=== PATIENT | male | born 1985 | race Two or more races ===

== ENCOUNTER 2021-06-23 11:45 | Emergency (ER) | payer MEDICAID, OTHER, SELFPAY ==
[2021-06-23 11:48] VITALS: BP 132/70; PULSE 80; RESP 18; TEMP 36.4; O2SAT 99; BMI 27.1
--- NOTE | 2021-06-23 12:42 | ED_ITS ---
HPI - Ear Problem General Chief complaint: Ear Problems Stated complaint: EAR PAIN Time Seen by Provider: 06/23/21 12:32 Source: patient and family Mode of arrival: ambulatory Limitations: no limitations History of Present Illness MD Complaint: ear pain Location: left ear Duration: constant Severity: moderate Relieving factors: nothing Exacerbating factors: palpation Context: recent plane flight Discharge from ear: no Associated symptoms ear: decreased hearing and external ear tenderness Treatment prior to arrival: eardrops (Was seen at [facility] about 12 days ago and had Cipro drops and no symptomatic relief) Related Data Previous Rx's Medication Instructions Recorded acetaminophen 300 mg-codeine 30 mg 1 tab PO Q8H PRN #14 tab 06/23/21 tablet amoxicillin 875 mg-potassium 1 tab PO BID 10 Days #20 tab 06/23/21 clavulanate 125 mg tablet (Augmentin) ofloxacin 0.3 % ear drops 10 drp OTIC (EARS) Q12H 14 Days ml 06/23/21 Allergies Allergy/AdvReac Type Severity Reaction Status Date / Time No Known Allergies Allergy Verified 06/23/21 11:47 Review of Systems Review of Systems: Constitutional : No Weight loss, No Fever, No Chills, No Night Sweats, No Fatigue, No Malaise ENT/Mouth : Positive left ear pain, No Hearing loss, No Nasal Congestion, No Sinus Pain, No Hoarseness, No sore throat, No Rhinorrhea, No Swallowing Difficulty Eyes: No Eye Pain, No Swelling, No Redness, No Foreign Body, No Discharge, No Vision Changes Cardiovascular : No Chest Pain, No SOB, No Dyspnea on Exertion, No Orthopnea, No Edema, No Palpitations Respiratory : No Cough, No Sputum, No Wheezing, No Smoke Exposure, No Dyspnea Gastrointestinal : No Nausea, No Vomiting, No Diarrhea, No Constipation, No abdominal Pain, No Hematochezia, No Melena Genitourinary : no irregular bleeding, No Dysuria, No Urinary Frequency, No Hematuria, No Urinary Incontinence, No Urgency, No Flank Pain, No Urinary Flow Changes, No Hesitancy Musculoskeletal : No joint pain, No Myalgias, No Joint Swelling Skin : No Skin Lesions, No rash Neuro : No Weakness, No Numbness, No Paresthesias, No Loss of Consciousness, No Dizziness, No Headache Psych : No Anxiety/Panic, No Depression, No SI/HI/AH/VH, No Social Issues, Heme/Lymph: No Bruising, No Bleeding,No Lymphadenopathy Endocrine : No Polyuria, No Polydipsia, No Temperature Intolerance Yes all other systems are reviewed and are negative [facility] Past Medical History Attestation statement: The following information was validated with the patient. Social History Social History Advance Directives: No Physical Exam Vital Signs: Vital Signs: Last Vital Signs Temp 97.5 F 06/23/21 11:48 Pulse 80 06/23/21 11:48 Resp 18 06/23/21 11:48 BP 132/70 06/23/21 11:48 Pulse Ox 99 06/23/21 11:48 Body Mass Index 27.1 vital signs have been reviewed as normal and appeared to be correct. Blood pressure normal. Heart rate normal. Respiration rate normal. Temperature normal. Oxygen saturation normal. Appearance: Alert. Oriented X3. No acute distress. Head: Normal external exam. Normocephalic. Atraumatic. No Salvador signs noted. No raccoon eyes noted Eyes: PERRLA. EOMI. Conjunctiva and sclera normal. Eyelids normal. ENT: Bilateral tympanic membranes erythematous with loss of normal landmarks and bulging and decreased light reflex consistent with otitis media. External e ar canals bilaterally erythematous and edematous consistent with otitis externa. Tympanic membranes are intact there are not perforated. Patient with tenderness palpation to bilateral tragus/Pinna. Pharynx normal. Uvula midline. Moist mucous membranes. No trismus noted. No drooling noted. No muffled voice noted. Neck: Normal inspection. Neck supple. FROM. No adenopathy. Thyroid Normal. No me ningeal signs. No neck mass noted. CVS: Normal heart rate and rhythm. Heart sound normal. Pulses normal throughout. No murmurs/rales/gallops. Respiratory: No respiratory distress. Painless inspiration. Back: Full range of motion noted. No rashes/lesion/induration/fluctuance or signs of infection noted. Skin: Skin warm and dry. Normal skin color. Normal skin turgor. No rashes/lesions/lacerations noted. Extremities: Extremities exhibit normal range of motion. Extremities nontender. Neuro: Oriented X 3. No motor deficit. No sensory deficit. Reflexes normal. Normal steady gait. No focal neuro deficits noted. Vascular: + radial pulses/+ 2 distal pedal pulses/+2 dorsalis pedis b/l. Normal cap refill. No cyanosis noted to upper extremity nails and lower extremity toes nails. Course Course Course Narrative: 36-year-old male presenting to the ED with complaints of left ear pain for the past 2 weeks worse today and is now starting in the right ear. Was seen at [facility] 12 days ago and diagnosed with external ear infection took Cipro drops for approximately 1 week and no symptomatic relief. He recently traveled on a plane. Denies any other symptoms. On exam patient noted to have bilateral otitis media/external ear canal infection tympanic membranes are intact. Therefore will DC home with antibiotics and symptomatic treatment along with instructions return if any new or worsening symptoms to follow up with primary care provider. Patient understands agrees with this plan. MDM - Ear Medical Records Attestation: I reviewed the patient's medical records. Discharge Plan Discharge Clinical Impression: Otitis externa, Otitis media Patient Disposition: Home, Self-Care Instructions: Otitis Externa (ED), Ear Infection (ED) Prescriptions: New ofloxacin 0.3 % drops 10 drp otic (ears) Q12H 14 Days RF: 0 amoxicillin-pot clavulanate [Augmentin] 875-125 mg tablet 1 tab PO BID 10 Days Qty: 20 RF: 0 acetaminophen-codeine 300-30 mg tablet 1 tab PO Q8H PRN (Reason: pain) Qty: 14 RF: 0 Referrals: Physician,None [Primary Care Provider] - 2 days (your pcp) Print Language: Nepali
== END 2021-06-23 12:57 | disposition home or self-care (01) ==
PROVIDERS: Emergency Provider Emergency Medicine Emergency Medical Services
DX: H60.90 Unspecified otitis externa, unspecified ear (principal); H66.90 Otitis media, unspecified, unspecified ear
CPT/HCPCS: 99283

== ENCOUNTER 2021-07-08 14:04 | Emergency (ER) | payer MEDICAID, OTHER, SELFPAY ==
[2021-07-08 14:25] VITALS: BP 137/100; PULSE 89; RESP 15; TEMP 36.7; O2SAT 99; BMI 25.1
--- NOTE | 2021-07-08 14:41 | ED_ITS ---
HPI - Ear Problem General Chief complaint: Ear Problems Stated complaint: RECHECK EAR INFECTION Time Seen by Provider: 07/08/21 14:41 Source: patient Mode of arrival: ambulatory Limitations: no limitations History of Present Illness HPI Narrative: 36-year-old male with recurrence ear infections presents to the emergency department with bilateral ear pain x1 month. He states that he has been put on multiple antibiotics including Cipro drops, ofloxacin drops, and oral Augmentin for his ear infection, and has not resolved. He reports decreased hearing in bilateral ears, worse in the left. He also reports purul ence discharge to bilateral ears, that has been improving over the past month, but it is still present. He mentions that at times he has tinnitus in both ears. He states that a little over a month ago, he had a long flight he was in, heard his ears pop at the time, did not think much of it, in weeks later he was diagnosed with an ear infection and otitis externa. Patient feels as though symptoms have not improved much with antibiotics. He states he has been using Q-tips frequently to bilateral ears. has been told to see an ENT, however he has not seen one due to issues with insurance. [place] He denies headache, fevers, chills, nausea, vomiting, rhinorrhea, sore throat, trauma to the area. To note, patient is not a diabetic. MD Complaint: ear pain and ear discharge Location: bilateral Duration: constant Severity: severe Relieving factors: nothing Exacerbating factors: nothing Context: recent plane flight Discharge from ear: yes - purulent Associated symptoms ear: tinnitus Treatment prior to arrival: other Related Data Previous Rx's Medication Instructions Recorded acetaminophen 300 mg-codeine 30 mg 1 tab PO Q8H PRN #14 tab 06/23/21 tablet amoxicillin 875 mg-potassium 1 tab PO BID 10 Days #20 tab 06/23/21 clavulanate 125 mg tablet (Augmentin) ofloxacin 0.3 % ear drops 10 drp OTIC (EARS) Q12H 14 Days ml 06/23/21 ciprofloxacin HCl 500 mg tablet 500 mg PO BID 10 Days #20 tab 07/08/21 Allergies Allergy/AdvReac Type Severity Reaction Status Date / Time No Known Allergies Allergy Verified 06/23/21 11:47 Review of Systems Review of Systems: Constitutional : No Weight loss, No Fever, No Chills, No Night Sweats, No Fatigue, No Malaise ENT/Mouth : + Hearing loss, + Ear Pain, + tinnitus, No Nasal Congestion, No Sinus Pain, No Hoarseness, No sore throat, No Rhinorrhea, No Swallowing Difficulty Eyes: No Eye Pain, No Swelling, No Redness, No Foreign Body, No Discharge, No Vision Changes Cardiovascular : No Chest Pain, No SOB, No Dyspnea on Exertion, No Orthopnea, No Edema, No Palpitations Respiratory : No Cough, No Sputum, No Wheezing, No Smoke Exposure, No Dyspnea Gastrointestinal : No Nausea, No Vomiting, No Diarrhea, No Constipation, No abdominal Pain, No Hematochezia, No Melena Musculoskeletal : No joint pain, No Myalgias, No Joint Swelling Skin : No Skin Lesions, No rash Neuro : No Weakness, No Numbness, No Paresthesias, No Loss of Consciousness, No Dizziness, No Headache PMFSH Past Medical History Attestation statement: The following information was validated with the patient. Source: old records reviewed and nursing notes reviewed Social History Social History Advance Directives: No Advance Directives Information Provided: No Physical Exam Vital Signs: Vital Signs: Last Vital Signs Temp 98.1 F 07/08/21 14:25 Pulse 89 07/08/21 14:25 Resp 15 07/08/21 14:25 BP 137/100 H 07/08/21 14:25 Pulse Ox 99 07/08/21 14:25 Body Mass Index 25.1 vital signs have been reviewed as normal and appeared to be correct. Blood pressure normal. Heart rate normal. Respiration rate normal. Temperature normal. Oxygen saturation normal. Appearance: Alert. Oriented X3. No acute distress. Head: Normal external exam. Normocephalic. Atraumatic. No Salvador signs noted. No raccoon eyes noted Eyes: PERRLA. EOMI. Conjunctiva and sclera normal. Eyelids normal. ENT: Pharynx normal. Uvula midline. Moist mucous membranes. No trismus noted. No drooling noted. No muffled voice noted. + right TM appears ruptured with mild errythema in the ear canal, slight purulent drainage noted in the left ear canal green/yellow in color. + Left TM appears to be a milky white color and there is a mass noted in the left ear canal ? cholesteatoma with purulent discharge. Decreased hearing to bilateral ears with finger rub Neck: Soft full range of motion, no JVD CVS: Heart regular rate and rhythm no murmurs and rubs Respiratory: Breath sounds are clear to auscultation bilaterally. No accessory muscle use noted. Abdomen: Soft nontender no rebound or guarding positive bowel sounds Back: No CVA tenderness. Full range of motion noted. Skin: Skin warm and dry. Normal skin color. Normal skin turgor. No rashes/lesions/lacerations noted. Extremities: No lower extremity edema. Extremities exhibit normal range of motion. Extremities nontender. Neuro: Oriented X 3. No motor deficit. No sensory deficit. Reflexes normal. Course Reevaluation(s) Reevaluation #1: Discussed case with Dr. John who agrees that the right tymp anic membrane is ruptured, question cholesteatoma on the left ear. He recommends cipro PO BID X10 days. He doesn't recommend ear drops at this time. Time: 14:58 Reevaluation #2: Safe for DC home with ENT follow up encouraged to get a primary care provider. Cipro sent to pharmacy Time: 15:17 MDM - Ear MDM Narrative Medical decision making narrative: 36-year-old male history of frequent ear infection presents to the emergency department with bilateral ear pain, purulence drainage, tinnitus, decreased hearing to bilateral ears X 1 month Upon physical examination the right TM appears ruptured with mild errythema in the ear canal, slight purulent drainage noted in the right eat canal green/yellow in color. Left TM appears to be a milky white color and there is a mass noted in the left ear canal ? cholesteatoma., no erythema in the ear canal but purulent drainage noted. Decreased hearing to bilateral ears with finger rub. Lungs are clear to auscultation. Patient's vitals are stable, he is af ebrile. No pain over TMJ Patient's history and physical examination are not consistent with otitis externa, or mastoiditis Plan at this time is to discus this case with Dr. John. He has been educated that follow up with ENT is highly recommended. Discharge Plan Discharge Clinical Impression: Rupture of right tympanic membrane Cholesteatoma Qualifiers: Laterality: left Qualified Code(s): H71.92 - Unspecified cholesteatoma, left ear Patient Disposition: Home, Self-Care Instructions: Ruptured Eardrum (ED) Additional Instructions: Follow up with ENT here are a few options 1. Dr. Darin Lamar [phone] 2. [facility] [phone] Do not use Q-tips, as this can cause more harm. Return to the emergency department with new or worsening symptoms Prescriptions: New ciprofloxacin HCl 500 mg tablet 500 mg PO BID 10 Days Qty: 20 RF: 0 No Action ofloxacin 0.3 % drops 10 drp otic (ears) Q12H 14 Days RF: 0 amoxicillin-pot clavulanate [Augmentin] 875-125 mg tablet 1 tab PO BID 10 Days Qty: 20 RF: 0 acetaminophen-codeine 300-30 mg tablet 1 tab PO Q8H PRN (Reason: pain) Qty: 14 RF: 0
== END 2021-07-08 15:28 | disposition home or self-care (01) ==
PROVIDERS: Emergency Provider Emergency Medicine Emergency Medical Services
DX: H72.91 Unspecified perforation of tympanic membrane, right ear (principal); H71.92 Unspecified cholesteatoma, left ear
CPT/HCPCS: 99283

== ENCOUNTER 2022-05-27 16:47 | Emergency (ER) | payer OTHER, MEDICAID, SELFPAY ==
[2022-05-27 17:13] VITALS: PULSE 76; RESP 18; TEMP 37.2; O2SAT 100; BMI 26.7
[2022-05-27 17:40] LABS: Strep A Nucleic Acid Negative (Negative)
--- NOTE | 2022-05-27 21:26 | ED_ITS ---
HPI - General Adult General Chief complaint: Dental/Oral Stated complaint: L tonsil enlarged, cant eat or drink Time Seen by Provider: 05/27/22 21:17 Source: patient Mode of arrival: ambulatory Limitations: no limitations History of Present Illness HPI narrative: Patient comes to the emergency room complaining of sore throat. Patient states that his left tonsil is bigger and very painful. Patient has been taking 1000 mg of acetaminophen b.i.d. without any significant relief. Patient complaining of chills, patient has not had any fever. Patient is able to swallow but it hurts doing so, has no trouble handling his own secretions. Related Data Previous Rx's Medication Instructions Recorded acetaminophen 300 mg-codeine 30 mg 1 tab PO Q8H PRN pain #14 tabs 06/23/21 tablet amoxicillin 875 mg-potassium 1 tab PO BID 10 days #20 tabs 06/23/21 clavulanate 125 mg tablet (Augmentin) ofloxacin 0.3 % ear drops 10 drp otic (ears) Q12H 14 days 06/23/21 ciprofloxacin HCl 500 mg tablet 500 mg PO BID 10 days #20 tabs 07/08/21 amoxicillin 500 mg-potassium 1 tab PO TID 10 days #30 tabs 05/27/22 clavulanate 125 mg tablet (Augmentin) Allergies Allergy/AdvReac Type Severity Reaction Status Date / Time No Known Allergies Allergy Verified 06/23/21 11:47 Review of Systems Review of Systems: Constitutional : No Weight loss, No Fever, No Chills, No Night Sweats, No Fatigue, No Malaise ENT/Mouth : No Hearing loss, No Ear Pain, No Nasal Congestion, No Sinus Pain, No Hoarseness, complaining of sore throat and left tonsil enlargement, No Rhinorrhea, No Swallowing Difficulty Eyes: No Eye Pain, No Swelling, No Redness, No Foreign Body, No Discharge, No Vision Changes Cardiovascular : No Chest Pain, No SOB, No Dyspnea on Exertion, No Orthopnea, No Edema, No Palpitations Respiratory : No Cough, No Sputum, No Wheezing, No Smoke Exposure, No Dyspnea Gastrointestinal : No Nausea, No Vomiting, No Diarrhea, No Constipation, No abdominal Pain, No Hematochezia, No Melena Genitourinary : no irregular bleeding, No Dysuria, No Urinary Frequency, No Hematuria, No Urinary Incontinence, No Urgency, No Flank Pain, No Urinary Flow Changes, No Hesitancy Musculoskeletal : No joint pain, No Myalgias, No Joint Swelling Skin : No Skin Lesions, No rash Neuro : No Weakness, No Numbness, No Paresthesias, No Loss of Consciousness, No Dizziness, No Headache Psych : No Anxiety/Panic, No Depression, No SI/HI/AH/VH, No Social Issues, Heme/Lymph: No Bruising, No Bleeding,No Lymphadenopathy Endocrine : No Polyuria, No Polydipsia, No Temperature Intolerance [facility] Social History Social History Advance Directives: No Advance Directives Information Provided: No Physical Exam ED Vital Signs: Vital Signs - 24 hr 05/27/22 17:13 Temperature 98.9 F Pulse Rate 76 Respiratory Rate 18 Pulse Oximetry 100 Oxygen Delivery Method Room Air BMI result Body Mass Index 26.7 Const Other: Appearance: Alert. Oriented X3. No acute distress. Eyes: Pupils equal, round and reactive to light. ENT: Enlargement of the left tonsils, with exudates. Neck: Normal inspection. Neck supple. No lymph nodes noted. No crepitus CVS: Normal heart rate and rhythm. Pulses normal. Normal S1 and S2 Respiratory: No respiratory distress. Breath sounds normal. No Wheezing. No rales Abdomen: Soft and nontender. No rigidity. No distention. Skin: Skin warm and dry. Normal skin color. Normal skin turgor. Extremities: No lower extremity edema. No Lacerations. No Rash Neuro: Oriented X 3. No motor deficit. No sensory deficit. Moving all extremities. No slurred speech. CN 2 through 12 grossly intact Psych: calm, cooperative, normal affect Course Course Course Narrative: Strep test is negative, patient seems to have a left peritonsillar abscess. I discussed with the patient that he needs to be aspirated. Patient agrees to the procedure. 2 mL of lidocaine were injected in the left tonsil. Aspiration was attempted with an 18 gauge needle, limiting the length up to 1 cm. No pus was obtained. Then, an incision was attempted with a 15 blade, once again limiting the length up to 1 cm. No pus was obtained. Patient was given the 1st dose of amoxicillin, patient was given p.o. dexamethasone and viscous lidocaine Medical Decision Making Lab Data Labs: Lab Results 09/23/22 Range/Units 17:16 S. pyogenes GrpA DWIGHT Negative (Negative) Discharge Plan Discharge Clinical Impression: Tonsillar enlargement Patient Disposition: Home, Self-Care Instructions: Tonsillitis (ED) Additional Instructions: Please follow-up with your primary care physician tomorrow. If you have any worsening or new symptoms, please return to the emergency room or call 911 Prescriptions: New amoxicillin-pot clavulanate [Augmentin] 500-125 mg tablet 1 tab PO TID 10 Days Qty: 30 0RF No Action ofloxacin 0.3 % drops 10 drp otic (ears) Q12H 14 Days 0RF amoxicillin-pot clavulanate [Augmentin] 875-125 mg tablet 1 tab PO BID 10 Days Qty: 20 0RF acetaminophen-codeine 300-30 mg tablet 1 tab PO Q8H PRN (Reason: pain) Qty: 14 0RF ciprofloxacin HCl 500 mg tablet 500 mg PO BID 10 Days Qty: 20 0RF
[2022-05-27] MEDS: Amoxicillin/Potassium Clav 875 MG TABLET PO (22:32)
[2022-05-27] MEDS: dexAMETHasone sod phosphate 4 MG/ML VIAL 6 MG IVPUSH (22:33)
[2022-05-27] MEDS: Lidocaine HCl Viscous 2 % 15 ML SOLUTION MUCOUS MEM (22:34)
== END 2022-05-27 22:38 | disposition home or self-care (01) ==
PROVIDERS: Emergency Provider Emergency Medicine
DX: J36 Peritonsillar abscess (principal); J35.1 Hypertrophy of tonsils
CPT/HCPCS: 36415; 42700; 87651; 99282; 99283; J1100